=== PATIENT | male | born 1995 | race Caucasian/White ===

== ENCOUNTER 2018-08-27 20:46 | Emergency (ER) | payer BC ==
[2018-08-27] MEDS ORDERED: TETRACAINE 0.5% OPHTH SOLN 2 ML BOTTLE OD ONE (20:52)
--- NOTE | 2018-08-27 20:53 | PDOC ---
History of Present Illness - General History Source: Patient Exam Limitations: No Limitations - History of Present Illness Initial Comments: 08/27/18 21:41 Patient is a 23 year old male with no significant past medical history who present to the ED with complaints of right eye discomfort that began yesterday afternoon. Patient reports walking outside when he suddenly felt something flew into his eye, but stated he thought it to be nothing but dust. He reports experiencing similar feelings of discomfort, prompting him to take a shower and attempt to flush his eye for 30 minute.s patient reports his right eye has become increasingly irritated over time since flushing it. He reports experiencing associated symptoms of blurred vision in his right eye, prompting him to come into the ED for further evaluation. Denies chest pain, sob. Denies nausea, vomiting. Denies contact with sick individuals, out of state travelling. Denies diarrhea, constipation. Denies dysuria, hematuria. Denies any other symptoms. Allergies: None Social history: Lives with father. No smoking. No alcohol. No illicit drugs. Surgical history: None PMD: None <Negrito Pryor - Last Filed: 08/27/18 21:41> <Alea Bateman - Last Filed: 08/28/18 06:28> - General Chief Complaint: Eye Problem Stated Complaint: BLURRY VISION Time Seen by Provider: 08/27/18 20:50 Past History <Negrito Pryor - Last Filed: 08/27/18 21:41> <Alea Bateman - Last Filed: 08/28/18 06:28> - Past Medical History Allergies/Adverse Reactions: Allergies Allergy/AdvReac Type Severity Reaction Status Date / Time No Known Allergies Allergy Verified 08/27/18 20:49 Home Medications: Ambulatory Orders NK [No Known Home Medication] 08/27/18 Review of Systems - Review of Systems Able to Perform ROS?: Yes Comments:: 08/27/18 21:41 GENERAL/CONSTITUTIONAL: No fever or chills. No weakness. HEAD, EYES, EARS, NOSE AND THROAT: +Right eye blurred vision. +Right eye irritation. No ear pain or discharge. No sore throat. CARDIOVASCULAR: No chest pain or shortness of breath. RESPIRATORY: No cough, wheezing, or hemoptysis. GASTROINTESTINAL: No nausea, vomiting, diarrhea or constipation. GENITOURINARY: No dysuria, frequency, or change in urination. MUSCULOSKELETAL: No joint or muscle swelling or pain. No neck or back pain. SKIN: No rash NEUROLOGIC: No headache, vertigo, loss of consciousness, or change in strength/ sensation. ENDOCRINE: No increased thirst. No abnormal weight change. HEMATOLOGIC/LYMPHATIC: No anemia, easy bleeding, or history of blood clots. ALLERGIC/IMMUNOLOGIC: No hives or skin allergy. <Negrito Pryor - Last Filed: 08/27/18 21:41> *Physical Exam - Physical Exam Comments: 08/27/18 21:42 GENERAL: Awake, alert, and fully oriented, in no acute distress HEAD: No signs of trauma EYES: +Moderate conjunctival erythema of right eye. PERRLA, EOMI, sclera anicteric, ENT: Auricles normal inspection, hearing grossly normal, nares patent, oropharynx clear without exudates. Moist mucosa NECK: Normal ROM, supple, no lymphadenopathy, JVD, or masses LUNGS: Breath sounds equal, clear to auscultation bilaterally. No wheezes, and no crackles HEART: Regular rate and rhythm, normal S1 and S2, no murmurs, rubs or gallops ABDOMEN: Soft, nontender, normoactive bowel sounds. No guarding, no rebound. No masses EXTREMITIES: Normal range of motion, no edema. No clubbing or cyanosis. No cords, erythema, or tenderness NEUROLOGICAL: Cranial nerves II through XII grossly intact. Normal speech, normal gait SKIN: Warm, Dry, normal turgor, no rashes or lesions noted. <Negrito Pryor - Last Filed: 08/27/18 21:41> ED Treatment Course - Medications Given in the ED: ED Medications Discontinued Medications Generic Name Dose Route Start Last Admin Trade Name Freq PRN Reason Stop Dose Admin Tetracaine HCl 1 drop 08/27/18 20:52 08/27/18 20:56 Pontocaine OD 08/27/18 20:53 1 drop ONCE ONE Administration <Negrito Pryor - Last Filed: 08/27/18 21:41> Medical Decision Making - Medical Decision Making Documentation has been prepared under my direction and personally reviewed by me in its entirety. I attest that this documented accurately reflects all work, treatment, procedures and medical decision making performed by me. As noted above, this 23-year-old man presents with right eye discomfort after sensation that something "flew in his eye" and subsequent attempts at flushing the foreign body out. Exam as noted One drop of tetracaine ophthalmic solution placed in right eye followed by fluorescein staining: Small corneal abrasion seen at "9 o'clock" position of the cornea Ciprofloxacin one drop placed in the right eye with instructions to continue this every 4 hours while awake for the next 5 days. The family is followed by Dr. Sheryl Piper for their ophthalmology care: He should follow up with her within the next 5 days. If he develops more serious pain or crusting/discharge from the eye prior to seeing her, he should return to the ER <Alea Bateman - Last Filed: 08/28/18 06:28> *DC/Admit/Observation/Transfer - Attestations Scribe Attestion: 08/27/18 21:42 Documentation prepared by Negrito Pryor, acting as medical safety director for Alea Bateman MD. <Negrito Pryor - Last Filed: 08/27/18 21:41> <Alea Bateman - Last Filed: 08/28/18 06:28> Diagnosis at time of Disposition: Corneal abrasion, right Qualifiers: Encounter type: initial encounter Qualified Code(s): S05.01XA - Injury of conjunctiva and corneal abrasion without foreign body, right eye, initial encounter - Discharge Dispostion Disposition: HOME - Referrals Referrals: Sheryl Piper MD [Staff Physician] - Call tomorrow - Patient Instructions Printed Discharge Instructions: Corneal Abrasion Additional Instructions: cipro eye drops: 1 drop in Right eye every 4 hrs while awake for 5 days ibuprofen/acetaminophen/naproxen as needed for pain call Dr Piper's office tomorrow to arrange followup within 1 week no work tomorrow return to ER if pain/vision worsens or you develop discharge from eye
[2018-08-27] MEDS ORDERED: TETRACAINE 0.5% OPHTH SOLN 2 ML BOTTLE ONE (20:55)
[2018-08-27] MEDS ORDERED: FLUORESCEIN NA 1 EA STRIP ONE (20:55)
[2018-08-27] MEDS ORDERED: CIPROFLOXACIN HCL 0.3% OPHTH 2.5ML BOTTLE ONE (21:11)
[2018-08-27] MEDS ORDERED: CIPROFLOXACIN HCL 0.3% OPHTH 2.5ML BOTTLE OD SCH (22:00)
[2018-08-28 02:39] VITALS: BP 125/70; PULSE 65; TEMP 98.7; BMI 26.3
== END 2018-08-27 21:47 | disposition home or self-care (01) ==
LOC: FER 20:46
DX: S05.01XA Injury of conjunctiva and corneal abrasion without foreign body, right eye, initial encounter (principal); X58.XXXA Exposure to other specified factors, initial encounter; Y93.89 Activity, other specified; Y92.89 Other specified places as the place of occurrence of the external cause
CPT/HCPCS: 99281-25

== ENCOUNTER 2020-05-20 20:42 | Emergency (ER) | payer BC ==
[2020-05-20 20:52] VITALS: BP 135/76; PULSE 98; TEMP 98.2; BMI 25.7
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
== END 2020-05-20 21:54 | disposition home or self-care (01) ==
LOC: FER 20:42
DX: S01.81XA Laceration without foreign body of other part of head, initial encounter (principal)
CPT/HCPCS: 99283-25